=== PATIENT | male | born 1985 | race Hispanic/Latino ===

== ENCOUNTER 2020-06-17 17:21 | Emergency (ER) | payer BC ==
[~2020-06-17] VITALS: Ht 162.6 cm; Wt 87.5 kg
[2020-06-17] MEDS ORDERED: KETOROLAC TROMETHAMINE 30 MG/ML VIAL IV STA (17:27)
--- NOTE | 2020-06-17 17:31 | Emergency Department Note ---
History of Present Illnes History of Present Illness History of Present Illness This is a 35 year old male presents to the ED for substernal CP which started today non radiating. Denies SOB or n/v. States that he has been suffering from the stress of a 5 month long divorce and a parent with recent diagnosis of CA. . Historian: Patient Arrival Mode: Car Onset (how long ago): hour(s) (1) Radiation: Reports extremity Severity: moderate Duration (how long): hour(s) (1) Timing of current episode: constant Progression: worsening Chronicity: new Relieving factors: none Exacerbating factors: none Associated symptoms: Reports denies other symptoms Treatments prior to arrival: none Past Medical/Family History Physician Review I have reviewed the patient's past medical and family history. Any updates have been documented here. Past Medical History Recent Fever: No Clinical Suspicion of Infectio: No New/Unexplained Change in Ment: No Past Medical History: Hyperlipedemia Past Surgical History: None Social History Smoking Cessation: Never Smoker Counseling Performed: No Alcohol Use: Occasional Review of Systems Review of Systems Constitutional: Reports no symptoms EENTM: Reports no symptoms Cardiovascular: Reports chest pain Respiratory: Reports no symptoms Gastrointestinal: Reports no symptoms Genitourinary: Reports no symptoms Musculoskeletal: Reports no symptoms Integumentary: Reports no symptoms Neurological: Reports no symptoms Psychological: Reports no symptoms Endocrine: Reports no symptoms Hematological/Lymphatic: Reports no symptoms Physical Exam Related Data Allergies: Coded Allergies: No Known Allergies (Unverified , 06/17/20) Triage Vital Signs Vital Signs Date Time Temp Pulse Resp B/P (MAP) Pulse Ox O2 Delivery O2 Flow Rate FiO2 06/17/20 17:21 99.2 68 18 158/87 100 Room Air Vital signs reviewed: Yes Physical Exam CONSTITUTIONAL Constitutional: Present well-developed, Present well-nourished HENT HENT: Present normocephalic, Present atraumatic, Present oropharynx clear/moist, Present nose normal HENT L/R: Present left ext ear normal, Present right ext ear normal EYES Eyes: Reports PERRL, Reports conjunctivae normal NECK Neck: Present ROM normal PULMONARY Pulmonary: Present effort normal, Present breath sounds normal CARDIOVASCULAR Cardiovascular: Present regular rhythm, Present heart sounds normal, Present capillary refill normal, Present normal rate GASTROINTESTINAL Abdominal: Present soft, Present nontender, Present bowel sounds normal GENITOURINARY Genitourinary: Present exam deferred SKIN Skin: Present warm, Present dry MUSCULOSKELETAL Musculoskeletal: Present ROM normal NEUROLOGICAL Neurological: Present alert, Present oriented x 3, Present no gross motor or sensory deficits PSYCHOLOGICAL Psychological: Present mood/affect normal, Present judgement normal Results Laboratory Lab results reviewed: Yes Laboratory comments CBC : WBC 11.2 CMP: K 3.5 CE : Troponins neg, Myoglobin 107 Repeat CE : Troponins Neg, myoglobin 100 Imaging Imaging results reviewed: Yes Impressions [place] [address] Patient Name: KHADRA ELIZABETH MR #: [id number] : 1985 Age/Sex: 35/M Req #: [id number] Adm Physician: Ordered by: CIRO MODI DO Report #: [id number] Location: [facility] Room/Bed: Procedure: [id number] HOPD/CXR 1 VEW - HOPD Exam Date: 06/17/20 Exam Time: 1746 REPORT STATUS: Signed EXAMINATION: CXR 1 VEW - HOPD INDICATION: Chest pain COMPARISON: None FINDINGS: TUBES and LINES: None. LUNGS: Normal lung volumes. Lungs are clear. No consolidations. PLEURA: No pleural effusion or pneumothorax. HEART AND MEDIASTINUM: The cardiomediastinal silhouette is unremarkable. BONES AND SOFT TISSUES: No acute osseous lesion. Soft tissues are unremarkable. UPPER ABDOMEN: No free air under the diaphragm. IMPRESSION: No acute thoracic radiographic abnormality. Signed by: Emily Martinez MD on 06/17/2020 5:58 PM Dictated By: EMILY MARTINEZ MD 57 Transcribed By: NATI on 06/17/201757 COPY TO: CIRO MODI DO~ Procedures 12 Lead ECG Interpretation ECG Interpretation #1: ECG: ECG 1 Group Work Program Director: Interpreted by ED physician Date: Jun 17, 2020 Time: 17:34 Prior ECG tracings: reviewed Rhythm: sinus rhythm Rate: normal BPM: 70 QRS axis: normal ST segments normal: Yes T waves normal: Yes Other findings: LVH Clinical Impression: non-specific ECG ECG Interpretation #2: ECG: ECG 2 Group Work Program Director: Interpreted by ED physician Date: Jun 17, 2020 Time: 19:54 Rhythm: sinus bradycardia Rate: bradycardia BPM: 54 QRS axis: normal ST segments normal: Yes T waves normal: Yes Clinical Impression: non-specific ECG Assessment & Plan Medical Decision Making MDM Diff Dx : ACS, PE , PTX, PNA, aortic dissection, angina, aortic aneurysm, costocondritis Assessment & Plan Final Impression: (1) Atypical chest pain (2) Depression Depart Disposition: HOME, SELF-CARE Medications in the ED Ketorolac Tromethamine 30 mg ONCE STAT IV ; Start 06/17/20 at 17:27; Stop 06/17/20 at 17:28; Status UNV CIRO MODI DO Jun 17, 2020 17:30
--- NOTE | 2020-06-17 18:01 | Diagnostic Imaging Report ---
EXAMINATION: CXR 1 VEW - HOPD INDICATION: Chest pain COMPARISON: None FINDINGS: TUBES and LINES: None. LUNGS: Normal lung volumes. Lungs are clear. No consolidations. PLEURA: No pleural effusion or pneumothorax. HEART AND MEDIASTINUM: The cardiomediastinal silhouette is unremarkable. BONES AND SOFT TISSUES: No acute osseous lesion. Soft tissues are unremarkable. UPPER ABDOMEN: No free air under the diaphragm. IMPRESSION: No acute thoracic radiographic abnormality. Signed by: Yonatan Casas MD on 06/17/2020 5:58 PM
--- OUTSIDE RECORDS SUMMARY | 2020-06-17 18:11 | XMS REPORT | Continuity of Care Document ---
Author Author [facility] t Organization [facility] Address [address] [place] [address] Phone Unavailable Care Team Providers Care Yarn Salvager Name Role Phone CIRO MODI Unavailable Payers Payer Name Policy Type Policy Number Effective Date Expiration Date S ource Problems This patient has no known problems. Allergies, Adverse Reactions, Alerts Allergy Name Allergy Type Status Severity Reaction(s) Onset Date Inacti ve Date Treating Clinician Comments Source No Known Allergies DA Active U 2016-05-16 00:00:00 [facility] Medications This patient has no known medications. Procedures This patient has no known procedures. Results Test Description Test Time Test Comments Results Result Comments Source CXR 1 VEW - HOPD 2020-06-17 17:57:00 [place] [address] Patient Name: KHADRA ELIZABETH MR #: [id number] : 1985 Age/Sex: 35/M Req #: [id number] Adm Physician: Ordered by: CIRO MODI DO Report #: [id number] Location: [facility] Room/Bed: Procedure: HOPD/CXR 1 [facility] Exam Date: 06/17/20 Exam Time: 1746 REPORT STATUS: Signed EXAMINATION: CXR 1 [facility] INDICATION: Chest pain COMPARISON: None FINDINGS: TUBES and LINES: None. LUNGS: Normal lung volumes. Lungs are clear. No consolidations. PLEURA: No pleural effusion or pneumothorax. HEART AND MEDIASTINUM: The cardiomediastinal silhouette is unremarkable. BONES AND SOFT TISSUES: No acute osseous lesion. Soft tissues are unremarkable. UPPER ABDOMEN: No free air under the diaphragm. IMPRESSION: No acute thoracic radiographic abnormality. Signed by: Emily Martinez MD on 06/17/2020 5:58 PM Dictated By: EMILY MARTINEZ MD 57 Transcribed By: NATI on 06/17/201757 COPY TO: CIRO MODI DO BASIC METABOLIC PANEL 2020-02-08 18:49:00 Test Item SODIUM (test code = NA) 137 mmol/L 136-145 N POTASSIUM (test code = K) 3.4 mmol/L 3.5-5.1 L CHLORIDE (test code = CL) 98 mmol/L 101-109 L CARBON DIOXIDE (test code = CO2) 25.1 mmol/L 21-32 N ANION GAP (test code = GAP) 17 mmol/L 10-20 N GLUCOSE (test code = GLU) 99 mg/dL 74-106 N BLOOD UREA NITROGEN (test code = BUN) 8 mg/dL 3-21 N GLOMERULAR FILTRATION RATE (test code = GFR) > 60 mL/min >=60 Estimated GFR by using Modified MDRD formula.Chronic kidney disease is defined as either kidney damageor GFR <60 mL/min/1.73 m2 for >3 months. CREATININE (test code = CREAT) 1.30 mg/dL 0.55-1.3 N BUN/CREATININE RATIO (test code = BUN/CREA) 6.2 10-20 L CALCIUM (test code = CA) 8.4 mg/dL 8.4-10.2 N [id number] 18:49:00* Test Item Value Reference Range Interpretation Comments TROPONIN-I (test code = TROPI) <0.015 ng/mL 0.00-0.056 N - XR CHEST 1 [id number] 18:47:00 [facility] 1985 Age/S:34 /M [address] [facility] Unit#:[id number] Loc: [place] [address] Phys: Melony Isaac PAYROLL ADMINISTRATIVE ASSISTANT Dis Date: PHONE #: [phone] Status: REG ER FAX #: [phone] Exam Date: 02/08/2020 Reason: CHEST PAIN EXAMS: CPT CODE: [id number] XR CHEST 1 V 89450 EXAM: Chest X-ray, 1 view; CLINICAL HISTORY: Chest pain; FINDINGS: The lungs are clear, no infiltrates, no edema; no effusions; no pneumothorax; normal cardiomediastinal silhouette. IMPRESSION: Normal chest x-ray. Location code: at 1847 Reported and signed by: Sean Kendall M.D. CC: Melony Isaac NP Technologist: Brooklyn Mcgee Trnscrpt Data: 02/08/2020 (1846) t.GRW Orig Print D/T: S: 02/08/2020 (1849) PAGE 1 Signed Report BASIC METABOLIC [id number] 18:43:00* Test Item Value Reference Range Interpretation Comments SODIUM (test code = NA) 137 mmol/L 136-145 N POTASSIUM (test code = K) 3.4 mmol/L 3.5-5.1 L CHLORIDE (test code = CL) 98 mmol/L 101-109 L CARBON DIOXIDE (test code = CO2) 25.1 mmol/L 21-32 N ANION GAP (test code = GAP) 17 mmol/L 10-20 N GLUCOSE (test code = GLU) 99 mg/dL 74-106 N BLOOD UREA NITROGEN (test code = BUN) 8 mg/dL 3-21 N GLOMERULAR FILTRATION RATE (test code = GFR) > 60 mL/min >=60 Estimated GFR by using Modified MDRD formula.Chronic kidney disease is defined as either kidney damageor GFR <60 mL/min/1.73 m2 for >3 months. CREATININE (test code = CREAT) 1.30 mg/dL 0.55-1.3 N BUN/CREATININE RATIO (test code = BUN/CREA) 6.2 10-20 L CALCIUM (test code = CA) 8.4 mg/dL 8.4-10.2 N [id number] 18:43:00* Test Item Value Reference Range Interpretation Comments TROPONIN-I (test code = TROPI) ng/mL 0-0.045 CBC W/O [id number] 18:33:00* Test Item Value Reference Range Interpretation Comments WHITE BLOOD CELL (test code = WBC) 10.9 K/mm3 4.5-12.5 N RED BLOOD CELL (test code = RBC) 4.97 mill/mm3 4.0-5.8 N HEMOGLOBIN (test code = HGB) 14.2 gram/dL 13.0-17.5 N HEMATOCRIT (test code = HCT) 44.2 % 42.0-52.0 N MEAN CELL VOLUME (test code = MCV) 88.9 fL 80-98 N MEAN CELL HGB (test code = MCH) 28.6 picogram 27.0-33.0 N MEAN CELL HGB CONCETRATION (test code = MCHC) 32.1 gram/dL 33.0-36. 0 L RED CELL DISTRIBUTION WIDTH (test code = RDW) 12.9 % 11.6-16. 2 N RED CELL DISTRIBUTION WIDTH SD (test code = RDW-SD) 42.6 fL 37 .0-51.0 N PLATELET COUNT (test code = PLT) 290 K/mm3 150-450 N MEAN PLATELET VOLUME (test code = MPV) 9.2 fL 6.7-11.0 N - XR CHEST 1 [id number] 13:25:00 Name: KHADRA ELIZABETH [facility] : 1985 Age/S:34 /M [address] [facility] Unit#:[id number] Loc: [place] [address] Phys: Daniel Borrero MD Dis Date: PHONE #: [phone] Status: REG ER FAX #: [phone] Exam Date: 11/19/2019 Reason: chest pain EXAMS: CPT CODE: [id number] XR CHEST 1 V 94105 HISTORY: Chest pain. COMPARISON: None available. Location: [facility]. No acute infiltrates, effusion or congestion is noted. Mild cardiomegaly. IMPRESSION: No acute infiltrates, effusion or congestion. at 1325 Reported and signed by: Alexandro Pop M.D. CC: Daniel Borrero MD Technologist: Desean Green RT(R) Trnscrpt Data: 11/19/2019 (3065) t.SDR.TH4 Orig Print D/T: S: 11/19/2019 (1866) PAGE 1 Signed Report URINALYSIS W/O [id number] 13:06:00* Test Item Value Reference Range Interpretation Comments UA COLOR (test code = COLU) YELLOW YELLOW YELLOW WITH GREEN TINT UA APPEARANCE (test code = APPU) CLEAR CLEAR UA GLUCOSE DIPSTICK (test code = DGLUU) norm mg/dL NEGATIVE UA BILIRUBIN DIPSTICK (test code = BILU) NEGATIVE mg/dL NEGATIVE UA KETONE DIPSTICK (test code = KETU) neg mg/dL NEGATIVE UA SPECIFIC GRAVITY (test code = SGU) 1.005 1.001-1.035 UA BLOOD DIPSTICK (test code = ZAINAB) neg Wilber/uL NEGATIVE UA PH DIPSTICK (test code = TAYLOR) 8.0 5.0-8.0 UA PROTEIN DIPSTICK (test code = PROU) neg mg/dL Neg-15 UA UROBILINIOGEN DIPSTICK (test code = URO) norm mg/dL 0.0-0.2 UA NITRITE DIPSTICK (test code = MARIO) NEGATIVE NEGATIVE UA LEUKOCYTE ESTERASE DIPSTICK (test code = LEUU) neg uL NEGA TIVE UA MICROSCOPIC NEEDED? (test code = UAMICRO) NO, NOT INDICATED UA MICROSCOPIC NOT INDICATED UA MICROSCOPIC EXAMS ARE NOT PERFORMED UNLESS ONE OF THECHEMICAL TESTS OR VISUAL EXAMINATION IS ABNORMAL. THE MICROSCOPIC EVALUATIONS ARE PERFORMED ON ALL ABNORMALRESULTS AND/OR WHEN SPECIFICALLY ORDERED BY A PHYSICIAN. DRUGS OF ABUSE SCREEN [id number] 13:06:00* Test Item Value Reference Range Interpretation Comments URN COCAINE (test code = COCAURN) NEGATIVE NEGATIVE URN CANNABINOIDS (test code = CANNABURN) NEGATIVE NEGATIVE URN AMPHETAMINE (test code = AMPHETURN) NEGATIVE NEGATIVE URN BARBITURATE (test code = BARBITURN) NEGATIVE NEGATIVE URN BENZODIAZEPINE (test code = BENZOURN) NEGATIVE NEGATIVE URN OPIATES (test code = OPIATURN) NEGATIVE NEGATIVE URN PHENCYCLIDINE (PCP) (test code = PHENCURN) NEGATIVE NEGATIV E [id number] 13:06:00* Test Item Value Reference Range Interpretation Comments D-DIMER (test code = DDIMER) < 100 ng/ml < 600 COMPREHENSIVE METABOLIC [id number] 13:06:00* Test Item Value Reference Range Interpretation Comments SODIUM (test code = NA) 136 mmol/L 135-148 N POTASSIUM (test code = K) 3.6 mmol/L 3.5-5.1 N CHLORIDE (test code = CL) 99 mmol/L 101-109 L CARBON DIOXIDE (test code = CO2) 27.8 mmol/L 21-32 N ANION GAP (test code = GAP) 13 mmol/L 10-20 N GLUCOSE (test code = GLU) 108 mg/dL 74-106 H BLOOD UREA NITROGEN (test code = BUN) 9 mg/dL 3-21 N CREATININE (test code = CREAT) 1.13 mg/dL 0.55-1.3 N BUN/CREATININE RATIO (test code = BUN/CREA) 8.0 10-20 L TOTAL PROTEIN (test code = PROT) 7.7 g/dL 6.5-8.4 N ALBUMIN (test code = ALB) 3.9 g/dL 3.4-4.8 N GLOBULIN (test code = GLOB) 3.8 G/DL 1-10 N ALBUMIN/GLOBULIN RATIO (test code = A/G) 1.0 RATIO 0.75-1.50 N CALCIUM (test code = CA) 8.8 mg/dL 8.4-10.2 N BILIRUBIN TOTAL (test code = BILT) 0.70 mg/dL 0.0-1.0 N SGOT/AST (test code = AST) 34 U/L 6-32 H SGPT/ALT (test code = ALT) 67 U/L 12-78 N N ote: Change in REFERENCE RANGE due to new reagent method. ALKALINE PHOSPHATASE TOTAL (test code = ALKP) 62 U/L 38-126 N [id number] 13:06:00* Test Item Value Reference Range Interpretation Comments LIPASE (test code = LIP) 90 U/L 128-270 L [id number] 13:06:00* Test Item Value Reference Range Interpretation Comments TROPONIN-I (test code = TROPI) <0.015 ng/mL 0.00-0.056 N COMPREHENSIVE METABOLIC [id number] 13:03:00* Test Item Value Reference Range Interpretation Comments SODIUM (test code = NA) 136 mmol/L 135-148 N POTASSIUM (test code = K) 3.6 mmol/L 3.5-5.1 N CHLORIDE (test code = CL) 99 mmol/L 101-109 L CARBON DIOXIDE (test code = CO2) 27.8 mmol/L 21-32 N ANION GAP (test code = GAP) 13 mmol/L 10-20 N GLUCOSE (test code = GLU) 108 mg/dL 74-106 H BLOOD UREA NITROGEN (test code = BUN) 9 mg/dL 3-21 N CREATININE (test code = CREAT) 1.13 mg/dL 0.55-1.3 N BUN/CREATININE RATIO (test code = BUN/CREA) 8.0 10-20 L TOTAL PROTEIN (test code = PROT) gram/dL 6.4-8.2 ALBUMIN (test code = ALB) g/dL 3.4-5.0 GLOBULIN (test code = GLOB) g/dL 2.7-4.2 ALBUMIN/GLOBULIN RATIO (test code = A/G) 0.75-1.50 CALCIUM (test code = CA) 8.8 mg/dL 8.4-10.2 N BILIRUBIN TOTAL (test code = BILT) mg/dL 0.2-1.2 SGOT/AST (test code = AST) IUnit/L 15-37 SGPT/ALT (test code = ALT) U/L 10-69 ALKALINE PHOSPHATASE TOTAL (test code = ALKP) IUnit/L 45-117 [id number] 13:03:00* Test Item Value Reference Range Interpretation Comments LIPASE (test code = LIP) Unit/L 144-286 [id number] 13:03:00* Test Item Value Reference Range Interpretation Comments TROPONIN-I (test code = TROPI) ng/mL 0-0.045 B-TYPE NATRIURETIC [id number] 13:03:00* Test Item Value Reference Range Interpretation Comments B-TYPE NATRIURETIC PEPTIDE (test code = BNP) 22.6 pg/mL 0-100 N URINALYSIS W/O [id number] 13:02:00* Test Item Value Reference Range Interpretation Comments UA COLOR (test code = COLU) YELLOW YELLOW YELLOW WITH GREEN TINT UA APPEARANCE (test code = APPU) CLEAR CLEAR UA GLUCOSE DIPSTICK (test code = DGLUU) norm mg/dL NEGATIVE UA BILIRUBIN DIPSTICK (test code = BILU) NEGATIVE mg/dL NEGATIVE UA KETONE DIPSTICK (test code = KETU) neg mg/dL NEGATIVE UA SPECIFIC GRAVITY (test code = SGU) 1.005 1.001-1.035 UA BLOOD DIPSTICK (test code = ZAINAB) neg Wilber/uL NEGATIVE UA PH DIPSTICK (test code = TAYLOR) 8.0 5.0-8.0 UA PROTEIN DIPSTICK (test code = PROU) neg mg/dL Neg-15 UA UROBILINIOGEN DIPSTICK (test code = URO) norm mg/dL 0.0-0.2 UA NITRITE DIPSTICK (test code = MARIO) NEGATIVE NEGATIVE UA LEUKOCYTE ESTERASE DIPSTICK (test code = LEUU) neg uL NEGA TIVE UA MICROSCOPIC NEEDED? (test code = UAMICRO) NO, NOT INDICATED UA MICROSCOPIC NOT INDICATED UA MICROSCOPIC EXAMS ARE NOT PERFORMED UNLESS ONE OF THECHEMICAL TESTS OR VISUAL EXAMINATION IS ABNORMAL. THE MICROSCOPIC EVALUATIONS ARE PERFORMED ON ALL ABNORMALRESULTS AND/OR WHEN SPECIFICALLY ORDERED BY A PHYSICIAN. DRUGS OF ABUSE SCREEN [id number] 13:02:00* Test Item Value Reference Range Interpretation Comments URN COCAINE (test code = COCAURN) NEGATIVE URN CANNABINOIDS (test code = CANNABURN) NEGATIVE URN AMPHETAMINE (test code = AMPHETURN) NEGATIVE URN BARBITURATE (test code = BARBITURN) NEGATIVE URN BENZODIAZEPINE (test code = BENZOURN) NEGATIVE URN OPIATES (test code = OPIATURN) NEGATIVE URN PHENCYCLIDINE (PCP) (test code = PHENCURN) NEGATIV E CBC W/AUTO [id number] 12:56:00* Test Item Value Reference Range Interpretation Comments WHITE BLOOD CELL (test code = WBC) 8.7 K/mm3 4.5-12.5 N RED BLOOD CELL (test code = RBC) 5.02 mill/mm3 4.0-5.8 N HEMOGLOBIN (test code = HGB) 14.6 gram/dL 13.0-17.5 N HEMATOCRIT (test code = HCT) 43.7 % 42.0-52.0 N MEAN CELL VOLUME (test code = MCV) 87.1 fL 80-98 N MEAN CELL HGB (test code = MCH) 29.1 picogram 27.0-33.0 N MEAN CELL HGB CONCETRATION (test code = MCHC) 33.4 gram/dL 33.0-36. 0 N RED CELL DISTRIBUTION WIDTH (test code = RDW) 13.0 % 11.6-16. 2 N RED CELL DISTRIBUTION WIDTH SD (test code = RDW-SD) 42.1 fL 37 .0-51.0 N PLATELET COUNT (test code = PLT) 307 K/mm3 150-450 N MEAN PLATELET VOLUME (test code = MPV) 9.5 fL 6.7-11.0 N NEUTROPHIL % (test code = NT%) 57.7 % 39.0-69.0 N LYMPHOCYTE % (test code = LY%) 32.0 % 25.0-55.0 N MONOCYTE % (test code = MO%) 9.3 % 0.0-10.0 N EOSINOPHIL % (test code = EO%) 0.7 % 0.0-5.0 N BASOPHIL % (test code = BA%) 0.2 % 0.0-1.0 N NEUTROPHIL # (test code = NT#) 5.00 K/mm3 1.8-7.7 N LYMPHOCYTE # (test code = LY#) 2.78 K/mm3 1.0-5.0 N MONOCYTE # (test code = MO#) 0.81 K/mm3 0-0.8 H EOSINOPHIL # (test code = EO#) 0.06 K/mm3 0.0-0.5 N BASOPHIL # (test code = BA#) 0.02 K/mm3 0.0-0.2 N
[2020-06-17] MEDS ORDERED: FAMOTIDINE 20 MG/2 ML VIAL IV STA (18:15)
--- NOTE | 2020-06-17 18:45 | NUR ---
REC'D REPORT FROM OFF GOING NS. JAZMIN. AWAITING TIME FOR REPEAT TROPI
--- NOTE | 2020-06-17 19:32 | NUR ---
REC'D V/O TO REPEAT TROPI AT THIS TIME.
[2020-06-17 20:15] VITALS: BP 128/85
== END 2020-06-17 20:15 | disposition home or self-care (01) ==
LOC: FSED 18:08
DX: R07.89 Other chest pain (principal); F32.9 Major depressive disorder, single episode, unspecified; E78.5 Hyperlipidemia, unspecified
CPT/HCPCS: 71045; 80053; 82553; 84484; 85025; 93005; 96374; 96376; 99283; J1885

== ENCOUNTER 2020-08-09 17:05 | Emergency (ER) | payer BC ==
[~2020-08-09] VITALS: Ht 162.6 cm; Wt 86.0 kg
== END 2020-08-09 21:50 | disposition home or self-care (01) ==
LOC: FSED 17:40
DX: M54.2 Cervicalgia (principal); R42 Dizziness and giddiness; R20.2 Paresthesia of skin; E78.5 Hyperlipidemia, unspecified; E78.00 Pure hypercholesterolemia, unspecified
CPT/HCPCS: 70450; 72125; 80053; 81003; 82553; 84484; 85025; 93005; 99284

== ENCOUNTER 2021-07-22 09:34 | Emergency (ER) | payer BC ==
[~2021-07-22] VITALS: Ht 162.6 cm; Wt 87.1 kg
[2021-07-22] MEDS ORDERED: SODIUM CHLORIDE 0.9% 1000ML 1,000 ML IV STA (10:08)
[2021-07-22] MEDS ORDERED: KETOROLAC TROMETHAMINE 30 MG/ML VIAL IV STA (11:11)
[2021-07-22] MEDS ORDERED: SODIUM CHLORIDE 0.9% 1000ML 1,000 ML ONE (11:13)
[2021-07-22] MEDS ORDERED: ACETAMINOPHEN-1 EAC4 PO (11:30)
[2021-07-22] MEDS ORDERED: KETOROLAC TROMETHAMINE 30 MG/ML VIAL ONE (11:34)
[2021-07-22 11:39] VITALS: BP 127/67
== END 2021-07-22 11:40 | disposition home or self-care (01) ==
LOC: FSED 10:10
DX: R51.9 Headache, unspecified (principal); M54.2 Cervicalgia; R42 Dizziness and giddiness; K21.9 Gastro-esophageal reflux disease without esophagitis; E78.00 Pure hypercholesterolemia, unspecified
CPT/HCPCS: 70450; 80048; 84484; 85025; 93005; 99283; J1885; J7030

== ENCOUNTER 2022-11-10 19:16 | Emergency (ER) | payer BC ==
[~2022-11-10] VITALS: Ht 167.6 cm; Wt 88.0 kg
[~2022-11-10 19:16] MED LIST: ACETAMINOPHEN-1 EAC4 PO
[2022-11-10] MEDS ORDERED: LIDOCAINE HCL 1% LOCAL INJ 20 ML VIAL INJ ONE (19:33)
[2022-11-10] MEDS ORDERED: PREDNISONE 20 MG TAB PO ONE (19:40)
[2022-11-10] MEDS ORDERED: ACETAMINOPHEN 325 MG TAB PO ONE (19:40)
[2022-11-10] MEDS ORDERED: LIDOCAINE HCL 2% LOCAL 20 ML VIAL ONE (19:50)
[2022-11-10] MEDS ORDERED: ACETAMINOPHEN 325 MG TAB ONE (20:41)
[2022-11-10] MEDS ORDERED: ULTRAM 50MG50 MG PO (20:49)
[2022-11-10] MEDS ORDERED: PREDNISONE20 MG PO (20:49)
[2022-11-10] MEDS ORDERED: CEPHALEXIN500 MG PO (20:49)
[2022-11-10] MEDS ORDERED: KETOROLAC TROMETHAMINE 60 MG/2 ML VIAL IM ONE (21:00)
[2022-11-10 21:06] VITALS: BP 129/84
[2022-11-10] MEDS ORDERED: KETOROLAC TROMETHAMINE 60 MG/2 ML VIAL ONE (21:12)
== END 2022-11-10 21:09 | disposition home or self-care (01) ==
LOC: FSED 19:31
DX: R50.9 Fever, unspecified (principal); M10.9 Gout, unspecified; M79.674 Pain in right toe(s); K21.9 Gastro-esophageal reflux disease without esophagitis; E78.00 Pure hypercholesterolemia, unspecified
CPT/HCPCS: 73630; 99283; J1885; J2001